=== PATIENT | female | born 1995 | race Caucasian/White ===

== ENCOUNTER 2021-07-16 02:29 | Inpatient (IN) | payer OTHER ==
[2021-07-16] MEDS ORDERED: LIDOCAINE 0.5% (PF) 5 MG/ML (50 ML SDV) SQ PRN (03:20)
[2021-07-16] MEDS ORDERED: METHYLERGONOVINE 0.2 MG/ML 1 ML AMP IM PRN (03:20)
[2021-07-16] MEDS ORDERED: OXYTOCIN 10 UNIT/ML 1 ML VIAL IM PRN (03:20)
[2021-07-16] MEDS ORDERED: CARBOPROST TROMETHAMINE 250 MCG/ML 1 ML AMP IM PRN (03:20)
[2021-07-16] MEDS ORDERED: TERBUTALINE 1 MG/ML VIAL SQ PRN (03:20)
[2021-07-16] MEDS ORDERED: OXYTOCIN 30 UNITS/500 ML NS 30 UNIT in SALINE 1 500ML.BAG IV SCH ×2 (03:30→14:00)
[2021-07-16 03:35] LABS: Basophils % (A) 0 %; Eosinophils # (A) 0.1 k/uL (0-0.7); Eosinophils % (A) 1 %; HCT 34.5 % (34.0-46.0); HGB 11.7 gm/dL (11.4-16.0); Lymphocytes # (A) 2.2 k/uL (1.0-4.8); Lymphocytes % (A) 17 %; MCH 31.4 pg (25.0-35.0); MCHC 33.8 g/dL (31.0-37.0); MCV 92.9 fL (80.0-100.0); Mean Platelet Volume 7.6; Monocytes # (A) 0.5 k/uL (0-1.0); Monocytes % (A) 4 %; Neutrophils % (A) 77 %; Platelet Count 348 k/uL (150-450); RBC 3.71 m/uL (3.80-5.40); RDW 12.8 % (11.5-15.5)
[2021-07-16] MEDS: LACTATED RINGERS 1,000 ML IV SCH ×3 (03:48→12:20)
--- NOTE | 2021-07-16 04:44 | P.HPOB ---
History of Present Illness H&P Date: 07/16/21 Chief Complaint: My water broke at 11:30 last night This is a 26-year-old female 1 para 0 EDC 08/04/2021 at 37-2/7 weeks' gestation. Patient presented with a history of spontaneous rupture of membranes, clear fluid, at approximately 11:30 at night. She is having rare irregular uterine contractions at this time. Fetus is been active throughout the . She denies vaginal bleeding. Past medical history is significant for abnormal Pap smear 2010. Past surgical history wisdom teeth extracted 2018. Current medications baby aspirin daily, vitamin daily. ALLERGIES none known. Family history significant for preeclampsia, colon cancer, diabetes. Social history patient is a former tobacco smoker. She works for [email or web address] [place] [place] is a patient financial services coordinator, she is and her 's name is Kwan. She denies alcohol or drug use. history blood type is A+, rubella status immune. VDRL testing, urine culture, hepatitis B surface antigen, HIV testing, gonorrhea and chlamydia cultures all negative. Thyroid function studies within normal limits. Group B strep cultures negative. One-hour Glucola 112. On exam patient is 5 foot 5 inches, 193 pounds, blood pressure 128/72, pulse 111. The general physical exam is within normal limits. Chest is clear in all keith. Extremities reveal no edema. Cervix is closed, long, posterior, -2 station, infant is vertex to Nicholas's maneuvers. heart rate is consistent with reactive NST. Impression: 37-2/7 weeks intrauterine , spontaneous amniorrhexis, no sign of labor at this time. Negative group B strep cultures. All signs reassuring. Plan: We will begin oxytocin at this time. Close maternal and surveillance. Analgesic options reviewed with the patient. Anticipate normal spontaneous vaginal delivery. Review of Systems Constitutional: Reports as per HPI Past Medical History Past Medical History: No Reported History History of Any Multi-Drug Resistant Organisms: None Reported Additional Past Surgical History / Comment(s): wisdom teeth out approx 2017 Past Anesthesia/Blood Transfusion Reactions: No Reported Reaction Past Psychological History: No Psychological Hx Reported Smoking Status: Never smoker Past Alcohol Use History: None Reported Past Drug Use History: None Reported Medications and Allergies Home Medications Medication Instructions Recorded Confirmed Type Aspirin 81 mg PO DAILY 07/16/21 07/16/21 History Pnv No.95/Ferrous Fum/Folic AC 1 tab PO DAILY 07/16/21 07/16/21 History [ Multivitamin Tablet] Allergies Allergy/AdvReac Type Severity Reaction Status Date / Time No Known Allergies Allergy Verified 07/16/21 02:31 Exam Vital Signs Temp Pulse Resp BP Pulse Ox 07/16/21 03:38 96.6 F L 16 127/65 07/16/21 03:15 97.0 F L 111 H 20 128/72 99 Intake and Output 07/15/21 07/15/21 07/16/21 14:59 22:59 06:59 Other: Weight 87.543 kg See dictation under HPI please Results Result Diagrams: 07/16/21 03:02 Abnormal Lab Results - Last 24 Hours (Table) 07/16/21 Range/Units 03:02 WBC 13.0 H (3.8-10.6) k/uL RBC 3.71 L (3.80-5.40) m/uL Neutrophils # 10.0 H (1.3-7.7) k/uL Assessment and Plan Assessment: 37-2/7 weeks intrauterine , spontaneous amniorrhexis, no sign of labor. All signs otherwise reassuring. Plan: Begin oxytocin with adjustments every 30 minutes per hospital protocol. Continue close maternal and surveillance. Analgesic options reviewed with the patient. Anticipate normal spontaneous vaginal delivery. Time with Patient: Less than 30
[2021-07-16] MEDS ORDERED: BUTORPHANOL 1 MG/ML 1 ML VIAL IV PRN (08:37)
[2021-07-16] MEDS ORDERED: ROPIVACAINE 100 MG, fentaNYL (PF). 200 MCG in SODIUM CHLORIDE 0.9% 76 ML EPIDURAL ONE (11:04)
--- NOTE | 2021-07-16 12:58 | P.MSEPDOC ---
Presenting Problems - Arrival Data Date of Arrival on Unit: 07/16/21 Time of Arrival on Unit: 02:29 Mode of Transport: Ambulatory - Complaint OB-Reason for Admission/Chief Complaint: Rule Out SROM Comment: SROM clear fluid at 2300 Medical History - Information : 1 Para: 0 Term: 0 : 0 Abortions: Spontaneous or Elective: 0 Number of Living Children: 0 - Gestational Age Gestational Age by ASHLEY (wks/days): 37 Weeks and 2 Days - History Comment: none Review of Systems - Review of Systems Constitutional: No problems Breast: No problems ENT: No problems Cardiovascular: No problems Respiratory: No problems Gastrointestinal: No problems Genitourinary: No problems Musculoskeletal: No problems Neurological: No problems Skin: No problems Vital Signs - Temperature Temperature: 96.6 F Temperature Source: Temporal Artery Scan - Pulse Right Brachial Pulse Rate: 111 Pulse Assessment Method: Automatic Cuff - Respirations Respiratory Rate: 16 Oxygen Delivery Method: Room Air - Blood Pressure Left Arm Blood Pressure: 127/65 Blood Pressure Mean: 85 Blood Pressure Source: Automatic Cuff Medical Screen Scoring - Cervical Exam Dilation (cm): 0 Effacement (%): 50 Station: -2 Membranes: Ruptured - Uterine Contractions Frequency From (mins): 2 Frequency To (mins): 7 Duration From (seconds): 50 Duration To (seconds): 70 Intensity: Mild Resting: Soft to palpation - Assessment - Baby A Baseline FHR: 145 Heart Rate - NICHD Category: Category I (Normal) NST: Reactive Physician Notification - Physician Notified Physician Notified Date: 07/16/21 Physician Notified Time: 03:15 Physician: Dr Arita New Order Received: Yes - Notification Comment Comment: Admit for labor may have epidural or Stadol if requesting for pain Maternal Triage Index - Maternal Triage Index Presenting for scheduled procedure w/no complaint: No - Stat/Priority 1 Stat Priority 1: No - Urgent/Priority 2 Urgent Priority 2: No - Prompt/Priority 3 Prompt Priority 3: No - Non-Urgent/Priority 4 Non-Urgent Priority 4: Yes Criteria Met for Priority 4: SROM >37 weeks Disposition - Disposition OB Disposition: Admit, LDRP Suite I agree with the RN Medical Screening Exam: Yes Case reviewed; plan agreed upon as documented in EMR&OBIX.: Yes Diagnosis: spontaneous rupture of membranes at term
[2021-07-16] MEDS ORDERED: diphenhydrAMINE 25 MG CAP PO PRN (13:53)
[2021-07-16] MEDS ORDERED: diphenhydrAMINE 50 MG/ML 1 ML VIAL IVP PRN ×2 (13:53)
[2021-07-16] MEDS ORDERED: ZOLPIDEM 5 MG TAB PO PRN (13:53)
[2021-07-16] MEDS ORDERED: LANOLIN CREAM 5 GM TUBE TOPICAL PRN (13:53)
[2021-07-16] MEDS ORDERED: diphenhydrAMINE 50 MG CAP PO PRN (13:53)
[2021-07-16] MEDS ORDERED: HYDROCORTISONE 2.5% RECTAL CREAM 30 GM TUBE RECTAL PRN (13:53)
[2021-07-16] MEDS ORDERED: BENZOCAINE/MENTHOL SPRAY 1 GM/SPRAY AEROSOL TOPICAL PRN (13:53)
[2021-07-16] MEDS ORDERED: SIMETHICONE 80 MG CHEWABLE PO PRN (13:53)
[2021-07-16] MEDS ORDERED: ACETAMINOPHEN TAB 325 MG TAB PO PRN (13:53)
--- NOTE | 2021-07-16 13:53 | P.PROBDLV ---
Vaginal Delivery Note - . Vaginal Delivery Note: findings: Male infant in the occiput anterior position with Apgars of 9 at 1 minute and 9 at 5 minutes weighing 6 lbs. 6 oz., 2890 g. First-degree perineal laceration. Bilateral small labial lacerations. EBL approximately 200 and mouth. Delivery summary: This is a 26-year-old 1 para 0 woman who presented at 37-2/7 weeks' gestation with spontaneous rupture of membranes not in labor. Rupture membranes occurred head proximally 2330 on 07/15/2021. Fluid was clear.her cervix was not dilated. She was admitted and Pitocin induction of labor was initiated. She progressed relatively rapidly and at approximately 3-4 cm received an epidural anesthetic. She then rapidly progressed to complete cervical dilation. She did have a prolonged deceleration following her epidural placement which was managed conservatively. Following complete cervical dilation she commenced pushing with excellent maternal effort. With she was repositioned, prepped and draped in the dorsal modified Moy position. Her bladder was drained with a Garza catheter prior to starting pushing. With additional maternal effort the head delivered from the left occiput anterior position. The anterior followed by the posterior shoulders were delivered in a controlled fashion without difficulty. The rest the was delivered onto the field. The nose and mouth were bulb suctioned and the was placed on the maternal abdomen. On the perineum was inspected and a first-degree laceration was noted. This was infused with lidocaine and repaired with 3-0 Vicryl suture in the usual fashion. She had bilateral labial lacerations however upon observation they were not actively bleeding. An intact, three-vessel cord placenta was expressed. It did appear small and somewhat calcified. It will be sent off for pathology evaluation. Following delivery of the placenta the patient received Pitocin. The uterus was massaged and noted to be firm below the level of the umbilicus. The vagina was reinspected no further lacerations were noted. Both mother and infant were doing well post delivery in the room. On counts were correct.
[2021-07-16] MEDS: IBUPROFEN 600 MG TAB PO PRN ×2 (15:58→23:27)
[2021-07-16] MEDS: SENNOSIDES-DOCUSATE SODIUM 1 EACH TAB PO SCH (20:10)
[2021-07-17 04:59] LABS: Basophils % (A) 0 %; Eosinophils % (A) 0 %; HCT 29.5 % (34.0-46.0); HGB 10.2 gm/dL (11.4-16.0); Lymphocytes # (A) 1.8 k/uL (1.0-4.8); Lymphocytes % (A) 13 %; MCH 31.7 pg (25.0-35.0); MCHC 34.7 g/dL (31.0-37.0); MCV 91.1 fL (80.0-100.0); Mean Platelet Volume 7.7; Monocytes # (A) 0.5 k/uL (0-1.0); Monocytes % (A) 3 %; Neutrophils # (A) 11.5 k/uL (1.3-7.7); Neutrophils % (A) 83 %; Platelet Count 302 k/uL (150-450); RBC 3.23 m/uL (3.80-5.40); RDW 13.5 % (11.5-15.5); WBC 13.9 k/uL (3.8-10.6)
[2021-07-17 08:14] VITALS: BP 114/57; PULSE 82; RESP 17; TEMP 98.1
[2021-07-17] MEDS: SENNOSIDES-DOCUSATE SODIUM 1 EACH TAB PO SCH (08:14)
--- NOTE | 2021-07-17 11:03 | P.DS ---
Providers Date of admission: 07/16/21 02:51 Expected date of discharge: 07/17/21 Attending physician: Patricia Cramer Primary care physician: Stated None - Discharge Diagnosis(es) (1) Perineal laceration with delivery, second degree Current Visit: Yes Status: Acute (2) Normal spontaneous vaginal delivery Current Visit: Yes Status: Acute (3) Spontaneous rupture of membranes Current Visit: Yes Status: Acute Hospital Course: this is a 26-year-old 1 now para 1 woman who presented at 37-2/7 weeks with with spontaneous rupture of membranes, not in active labor. Her cervix was not dilated. She was admitted on and underwent a Pitocin induction of labor. When she was in active labor she had a rapid first stage. She received an epidural anesthetic. She went on to deliver a live born male infant over a fi rst-degree perineal laceration. Apgars were 9 at 1 minute and 9 at 5 minutes and weight was 6 lbs. 6 oz. Her post course was unremarkable. By the morning of day #1 she was ambulating and voiding without difficulty, her pain was well-controlled with oral pain medications. Her vital signs were stable. She was breast-feeding successfully. She was therefore discharged home post 24 hours and discharge of the infant. Routine instructions for care and follow-up were reviewed. Patient Condition at Discharge: Good Plan - Discharge Summary New Discharge Prescriptions: No Action Aspirin 81 mg PO DAILY Pnv No.95/Ferrous Fum/Folic AC [ Multivitamin Tablet] 1 tab PO DAILY Discharge Medication List Aspirin 81 mg PO DAILY 07/16/21 [History] Pnv No.95/Ferrous Fum/Folic AC [ Multivitamin Tablet] 1 tab PO DAILY 07/16/21 [History] Follow up Appointment(s)/Referral(s): Patricia Cramer MD [STAFF PHYSICIAN] - 6 Weeks Activity/Diet/Wound Care/Special Instructions: Follow-up in the office in 6 weeks . Call with any concerning signs or symptoms including heavy vaginal bleeding, severe abdominal pain, fever greater than 101, swelling or redness of the lower extremities, foul vaginal discharge, or signs of depression. Nothing in the vagina for 6 weeks after delivery, specifically no intercourse. Discharge Disposition: HOME SELF-CARE
[2021-07-17] MEDS: IBUPROFEN 600 MG TAB PO PRN (13:47)
== END 2021-07-17 14:15 | disposition home or self-care (01) | DRG 807 ==
LOC: FBPOP 02:29 → 4FBP 02:51
PROVIDERS: ADMIT Obstetrics & Gynecology; ATTEND Obstetrics & Gynecology
PROC: 10E0XZZ Delivery of Products of Conception, External Approach (ICD-10-PCS; principal; 2021-07-16)
PROC: 10907ZC Drainage of Amniotic Fluid, Therapeutic from Products of Conception, Via Natural or Artificial Opening (ICD-10-PCS; 2021-07-16)
PROC: 3E033VJ Introduction of Other Hormone into Peripheral Vein, Percutaneous Approach (ICD-10-PCS; 2021-07-16)
PROC: 4A0HX4Z Measurement of Products of Conception, Cardiac Electrical Activity, External Approach (ICD-10-PCS; 2021-07-16)
PROC: 0HQ9XZZ Repair Perineum Skin, External Approach (ICD-10-PCS; 2021-07-16)
PROC: 0UQMXZZ Repair Vulva, External Approach (ICD-10-PCS; 2021-07-16)
DX: O76 Abnormality in fetal heart rate and rhythm complicating labor and delivery (principal); Z37.0 Single live birth; O70.0 First degree perineal laceration during delivery; O71.89 Other specified obstetric trauma; Z3A.37 37 weeks gestation of pregnancy; Z79.82 Long term (current) use of aspirin; Z87.891 Personal history of nicotine dependence
CPT/HCPCS: 59025; 84112; 85025; 86850; 86900; 86901; 99213

== ENCOUNTER 2023-04-18 14:01 | Emergency (ER) | payer OTHER ==
[2023-04-18 14:09] VITALS: BP 126/79; PULSE 101; RESP 17; TEMP 98.2
[2023-04-18] MEDS ORDERED: KETOROLAC 15 MG/ML 1 ML VIAL IM STA (14:13)
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
[2023-04-18 14:33] LABS: Appearance,Urine Clear (Clear); Bilirubin,Urine Negative (Negative); Blood,Urine Negative (Negative); Color,Urine Colorless; Glucose,Urine (UA) Negative (Negative); Ketones,Urine Trace (Negative); Leukocyte Esterase,Urine Negative (Negative); Nitrite,Urine Negative (Negative); PH, Urine 6.5 (5.0-8.0); Protein,Urine Negative (Negative); Specific Gravity,Urine 1.005 (1.001-1.035); Urobilinogen,Urine <2.0 mg/dL (<2.0)
[2023-04-18] MEDS ORDERED: KETOROLAC 15 MG/ML 1 ML VIAL IVP STA (14:35)
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
== END 2023-04-18 15:04 | disposition home or self-care (01) ==
LOC: EC 14:01
DX: M79.601 Pain in right arm (principal); V89.2XXA Person injured in unspecified motor-vehicle accident, traffic, initial encounter; Y92.410 Unspecified street and highway as the place of occurrence of the external cause
CPT/HCPCS: 81003; 81025; 73090; 99284; 96374; J1885